=== PATIENT | female | born 1950 | race Caucasian/White ===

== ENCOUNTER 2016-11-29 09:12 | Day surgery (SDC) | payer OTHER ==
[2016-11-29] MEDS ORDERED: HYDROCORTISONE SUCCINATE 100 MG/2 ML VIAL IVP ONE ×2 (09:46→10:00)
[2016-11-29] MEDS ORDERED: LACTATED RINGERS 1,000 ML IV ONE (10:05)
[2016-11-29] MEDS ORDERED: fentaNYL 100 MCG/2 ML VIAL IVP ONE (11:30)
[2016-11-29] MEDS ORDERED: MIDAZOLAM 2 MG/2 ML VIAL IVP ONE (11:30)
--- NOTE | 2016-11-29 12:19 | PROCEDURE REPORT ---
DATE OF PROCEDURE: 11/29/2016 00:00:00 NAME OF PROCEDURE: Colonoscopy. ENDOSCOPIST: Brian White MD PRIMARY CARE: Jackeline Michael PA-C INDICATION: History of colon polyps, and history of microscopic colitis. Need for followup colonoscop y. PREMEDICATIONS: Fentanyl 150 mcg, Versed 7 mg IV titration. TOTAL SEDATION TIME: 24 minutes. DESCRIPTION OF PROCEDURE: After informed consent was obtained, the patient was placed in the left lat eral decubitus position. The video colonoscope was introduced into the rectum, slowly advanced to the cecum. On slow withdrawal, mucosa was carefully examined. The scope was removed. Patient tolerated t he procedure well. BLOOD LOSS: None. COMPLICATIONS: None. FINDINGS: Normal colonoscopy to cecum. The patient will need followup colonoscopy in 5 years. JOB #: [id number] EXT JOB #:[id number]
[2016-11-29 12:48] VITALS: BP 110/66
== END 2016-11-29 09:13 | disposition home or self-care (01) ==
LOC: SDS 09:12
PROVIDERS: ATTEND Internal Medicine Gastroenterology
PROC: 0DJD8ZZ Inspection of Lower Intestinal Tract, Via Natural or Artificial Opening Endoscopic (ICD-10-PCS; principal; 2016-11-29 11:00)
DX: Z86.010 Personal history of colon polyps (principal); G47.30 Sleep apnea, unspecified; Z87.19 Personal history of other diseases of the digestive system; Z86.73 Personal history of transient ischemic attack (TIA), and cerebral infarction without residual deficits; Z79.82 Long term (current) use of aspirin
CPT/HCPCS: 45378; J7120

== ENCOUNTER 2016-12-11 14:12 | Outpatient (CLI) | payer OTHER | END 2016-12-11 14:13 | disposition home or self-care (01) | LOC: RT 14:12 | PROVIDERS: ATTEND Physician Assistant | DX: R00.2 Palpitations (principal); R06.02 Shortness of breath | CPT/HCPCS: 93005 ==

== ENCOUNTER 2016-12-25 14:39 | Outpatient (CLI) | payer OTHER ==
--- NOTE | 2016-12-25 15:46 | XRAY Report ---
TWO VIEW CHEST: 12/25/2016 CLINICAL INDICATION: Chest tightness, shortness of breath. COMPARISON: 09/07/2015 Frontal and lateral views of the chest demonstrate a normal cardiac silhouette. Linear scarring at t he left base is stable. The lungs are hyperinflated, compatible with COPD. No focal consolidation, effusion, or pneumothorax is present. IMPRESSION: COPD, BUT NO EVIDENCE OF ACUTE CARDIOPULMONARY DISEASE. JOB #: [id number] EXT JOB #:[id number]
== END 2016-12-25 14:40 | disposition home or self-care (01) ==
LOC: DI 14:39
PROVIDERS: ATTEND Nurse Practitioner Family
DX: J44.9 Chronic obstructive pulmonary disease, unspecified (principal); R07.89 Other chest pain
CPT/HCPCS: 71020

== ENCOUNTER 2017-02-14 10:11 | Outpatient (CLI) | payer OTHER, MEDICARE ==
--- NOTE | 2017-02-15 15:31 | Mammography Report ---
DIGITAL SCREENING MAMMOGRAM: 02/14/2017 CLINICAL INDICATION: A 66-year-old for screening. COMPARISON: 01/2016, 01/2015, 07/2012, 06/2011, 05/2010 TECHNIQUE: Routine CC and MLO projections were obtained of the breasts. FINDINGS: The breasts again demonstrate scattered fibroglandular densities bilaterally. Asymmetric parenchyma in the right upper outer quadrant is stable. Coarse and punctate, typically benign calcif ications are present. No suspicious masses, clustered microcalcifications, or regions of architectur al distortion are identified. IMPRESSION: BENIGN FINDINGS. RECOMMENDATION: Routine annual screening unless otherwise clinically indicated. BIRADS CATEGORY 2 - BENIGN FINDINGS. STANDARD QUALIFYING STATEMENTS 1. This examination was reviewed with the aid of Computer-Aided Detection (CAD). 2. A negative or benign imaging report should not delay biopsy if clinically suspicious findings are present. Consider surgical consultation if warranted. More than 5% of cancers are not identified by i maging. 3. Dense breasts may obscure an underlying neoplasm. JOB #: [id number] EXT JOB #:[id number]
== END 2017-02-14 10:12 | disposition home or self-care (01) ==
LOC: DI 10:11
PROVIDERS: ATTEND Physician Assistant
DX: Z12.31 Encounter for screening mammogram for malignant neoplasm of breast (principal)
CPT/HCPCS: 77067

== ENCOUNTER 2017-05-25 11:09 | Outpatient (CLI) | payer MEDICARE, OTHER ==
--- NOTE | 2017-05-25 13:30 | XRAY Report ---
DATE OF SERVICE: 05/25/2017 THREE VIEW LEFT FOOT: 05/25/2017 CLINICAL INDICATION: Pain. COMPARISON: MRI 07/28/2010, left great toe 07/22/2010. FINDINGS: AP, lateral, oblique views of the left foot demonstrate interval increase in hallux valgus with mild osteoarthritis. A small plantar calcaneal spur is present. There is no evidence of acute fracture or dislocation. IMPRESSION: INCREASING HALLUX VALGUS, WITH MILD OSTEOARTHRITIS. NO EVIDENCE OF FRACTURE. TD: 05/25/2017 14:29
== END 2017-05-25 11:10 | disposition home or self-care (01) ==
LOC: DI 11:09
PROVIDERS: ATTEND Podiatrist
DX: M19.072 Primary osteoarthritis, left ankle and foot (principal); M20.12 Hallux valgus (acquired), left foot

== ENCOUNTER 2017-10-12 07:57 | Outpatient (CLI) | payer MEDICARE, OTHER | END 2017-10-12 07:58 | disposition home or self-care (01) | LOC: LAB.F 07:57 | PROVIDERS: ATTEND Internal Medicine Gastroenterology | DX: K50.90 Crohn's disease, unspecified, without complications (principal) | CPT/HCPCS: 87493 ==

== ENCOUNTER 2017-10-15 13:06 | Outpatient (CLI) | payer MEDICARE, OTHER ==
[2017-10-16 13:16] LABS: HEPATITIS C ANTIBODY NON-REACTIVE (NON-REACTIVE)
== END 2017-10-15 13:07 | disposition home or self-care (01) ==
LOC: LAB 13:06
PROVIDERS: ATTEND Internal Medicine Gastroenterology
DX: Z53.9 Procedure and treatment not carried out, unspecified reason (principal)
CPT/HCPCS: 36415; 81599; 86317; 86803

== ENCOUNTER 2018-01-07 08:00 | Outpatient (CLI) | payer MEDICARE, OTHER | END 2018-01-07 08:01 | LOC: LAB.R 08:00 | PROVIDERS: ATTEND Internal Medicine Gastroenterology | DX: K50.90 Crohn's disease, unspecified, without complications (principal) | CPT/HCPCS: 83993 ==

== ENCOUNTER 2018-02-12 16:21 | Outpatient (CLI) | payer MEDICARE, OTHER ==
--- NOTE | 2018-02-13 14:58 | XRAY Report ---
Reason: COUGH Procedure Date: 02/12/2018 Accession Number: [id number] / [id number] Procedure: XR - Chest 2 View X-Ray CPT Code: 45745 FULL RESULT: EXAM: CHEST RADIOGRAPHY EXAM DATE: 02/12/2018 04:44 PM. CLINICAL HISTORY: Cough. COMPARISON: CHEST 2 VIEW PA/LAT 12/25/2016 3:23 PM. TECHNIQUE: 2 views. FINDINGS: Lungs/Pleura: Stable mild left base scarring, otherwise no focal opacities evident. No pleural effusion. No pneumothorax. Hyperinflated lungs. Mediastinum: Heart and mediastinal contours are unremarkable. Other: Stable mild lower thoracic compression fractures. IMPRESSION: Stable hyperinflation with left base scarring. No acute pulmonary abnormality. RADIA
== END 2018-02-12 16:22 | disposition home or self-care (01) ==
LOC: DI 16:21
PROVIDERS: ATTEND Nurse Practitioner Family
DX: R05 Cough (principal)
CPT/HCPCS: 71046

== ENCOUNTER 2018-03-15 12:30 | Outpatient (CLI) | payer MEDICARE, OTHER | END 2018-03-15 12:31 | disposition home or self-care (01) | LOC: LAB.R 12:30 | PROVIDERS: ATTEND Internal Medicine Gastroenterology | DX: R19.7 Diarrhea, unspecified (principal); K50.90 Crohn's disease, unspecified, without complications | CPT/HCPCS: 87493 ==

== ENCOUNTER 2018-04-15 08:00 | Outpatient (CLI) | payer MEDICARE, OTHER | END 2018-04-15 23:59 | LOC: LAB.R 08:00 | PROVIDERS: ATTEND Internal Medicine Gastroenterology | DX: R19.7 Diarrhea, unspecified (principal); K50.90 Crohn's disease, unspecified, without complications | CPT/HCPCS: 83993; 87493 ==

== ENCOUNTER 2018-05-07 08:00 | Outpatient (CLI) | payer MEDICARE, OTHER | END 2018-05-07 23:59 | disposition home or self-care (01) | LOC: LAB 08:00 | PROVIDERS: ATTEND Internal Medicine Gastroenterology | DX: R19.7 Diarrhea, unspecified (principal); K50.90 Crohn's disease, unspecified, without complications | CPT/HCPCS: 87493 ==

== ENCOUNTER 2018-06-12 13:10 | Outpatient (CLI) | payer MEDICARE, OTHER | END 2018-06-12 13:11 | disposition home or self-care (01) | LOC: RT 13:10 | PROVIDERS: ATTEND Nurse Practitioner Family | DX: R05 Cough (principal); R93.89 Abnormal findings on diagnostic imaging of other specified body structures | CPT/HCPCS: 94010 ==

== ENCOUNTER 2018-06-25 09:46 | Outpatient (CLI) | payer MEDICARE, OTHER ==
--- NOTE | 2018-06-26 09:34 | Mammography Report ---
Reason: ANNUAL SCREENING Procedure Date: 06/25/2018 Accession Number: [id number] / [id number] Procedure: ANNA - Screening Mammo w/Ivan CPT Code: FULL RESULT: EXAM: Screening Mammo w/Ivan DATE: 06/25/2018 10:15 AM CLINICAL HISTORY: Screening encounter. History of early menses. TECHNIQUE: Bilateral CC and MLO views were obtained. COMPARISON: 02/14/2017 through 07/21/2011. FINDINGS: The breasts demonstrate scattered fibroglandular densities bilaterally. There are coarse typically benign bilateral calcifications. No suspicious masses, clustered microcalcifications, or regions of architectural distortion are identified. IMPRESSION: Benign findings RECOMMENDATION: Routine annual screening unless otherwise clinically indicated. BIRADS CATEGORY 2: Benign findings STANDARD QUALIFYING STATEMENTS: 1. This examination was not reviewed with the aid of Computer-Aided Detection (CAD). 2. A negative or benign imaging report should not delay biopsy if clinically suspicious findings are present. Consider surgical consultation if warrented. More than 5% of cancers are not identified by imaging. 3. Dense breasts may obscure an underlying neoplasm. 4. This examination was reviewed with the aid of 3D breast imaging (tomosynthesis).
== END 2018-06-25 09:47 | disposition home or self-care (01) ==
LOC: DI 09:46
PROVIDERS: ATTEND Obstetrics & Gynecology
DX: Z12.31 Encounter for screening mammogram for malignant neoplasm of breast (principal)
CPT/HCPCS: 77063; 77067

== ENCOUNTER 2018-07-05 07:58 | Outpatient (CLI) | payer MEDICARE, OTHER ==
[2018-07-05 10:20] LABS: ALBUMIN 3.8 g/dL (3.2-5.5); ALBUMIN/GLOBULIN RATIO 1.1 (1.0-2.2); BILIRUBIN,TOTAL 0.7 mg/dL (0.2-1.0); CREATININE 0.5 mg/dL (0.4-1.0); TOTAL PROTEIN 7.2 g/dL (6.7-8.2)
== END 2018-07-05 07:59 | disposition home or self-care (01) ==
LOC: LAB.F 07:58
PROVIDERS: ATTEND Physician Assistant
DX: E78.5 Hyperlipidemia, unspecified (principal)
CPT/HCPCS: 36415; 80053

== ENCOUNTER 2018-07-25 14:54 | Outpatient (CLI) | payer MEDICARE, OTHER ==
--- NOTE | 2018-07-26 10:47 | DEXA Report ---
Reason: ENCOUNTER FOR SCREENING FOR OSTEOPOROSIS Procedure Date: 07/25/2018 Accession Number: [id number] / [id number] Procedure: DEX - Dexa Spine and/or Hip CPT Code: FULL RESULT: EXAM: Dexa Spine and/or Hip DATE: 07/25/2018 5:05 PM CLINICAL HISTORY: ENCOUNTER FOR SCREENING FOR OSTEOPOROSIS TECHNIQUE: Dual energy x-ray absorptiometry (DXA) was performed on a Accolade System. Regions measured are the AP Spine, femoral neck, and if needed forearm. COMPARISON: 02/14/2016. In accordance with the International Society for Clinical Densitometry (ISCD) guidelines, data from previous exams may be reanalyzed using current recommendations and techniques. This is done to allow a more accurate basis for comparison with the current study. FINDINGS: The data for the lumbar spine is as follows: BMD (g/cm/cm) T-SCORE Z-SCORE REGION L1 0.853 -2.3 -1.8 L2 1.068 -1.1 -0.6 L3 1.202 0.0 0.6 L4 1.190 -0.1 0.5 TOTAL 1.082 -0.8 -0.3 NOTE: All evaluable vertebrae are used for classification The data for the hip is as follows: BMD (g/cm/cm) T-SCORE Z-SCORE REGION Neck 0.797 -1.7 -0.9 TOTAL 0.917 -0.7 -0.2 NOTE: The femoral neck or total proximal femur, whichever is lowest, is used for classification. DXA RESULTS SUMMARY: Spine SCAN DATE AGE BMD CHANGE VS CHANGE VS PREVIOUS PREVIOUS % [birth year][age]25[birth year]2018 [age] 1.082 -0.011 -1.0 02/14/2016 65.8 1.093 * Denotes significant change at the 95% confidence level. Denotes dissimilar scan types or analysis methods. DXA RESULTS SUMMARY: Hip SCAN DATE AGE BMD CHANGE VS CHANGE VS PREVIOUS PREVIOUS % [birth year]25[birth year]2018 67.2 0.917 -0.038* -4.0* 02/14/2016 65.8 0.955 * Denotes significant change at the 95% confidence level. Denotes dissimilar scan types or analysis methods. IMPRESSION: THE WHO CLASSIFICATION BASED ON THE INTERNATIONAL REFERENCE STANDARD IS OSTEOPENIA. THE FRACTURE RISK IS INCREASED. RECOMMENDATION: Patients with diagnosis of osteoporosis or osteopenia should have regular bone mineral density assessment. For those eligible for Medicare, routine testing is allowed once every 2 years. Testing frequency can be increased for patients who have rapidly progressing disease or for those who are receiving medical therapy to restore bone mass. COMMENT: World Health Organization (WHO) definitions for osteoporosis and osteopenia: NORMAL BMD: T-score at -1.0 or higher, fracture risk is low OSTEOPENIA BMD: T-score between -1.0 and -2.5, fracture risk is increased. OSTEOPOROSIS BMD: T-score at -2.5 or lower, fracture risk is high. National Osteoporosis Foundation recommends: 1. Obtain adequate dietary calcium (at least 1200 mg per day) and vitamin D (400-800 international units per day). 2. Participate, as appropriate, in regular weightbearing and muscle-strengthening exercise. 3. Avoid tobacco use and reduce alcohol and caffeine intake. 4. For more detailed information see the website at www.NOF.org.
== END 2018-07-25 14:55 | disposition home or self-care (01) ==
LOC: DI 14:54
PROVIDERS: ATTEND Physician Assistant
DX: Z13.820 Encounter for screening for osteoporosis (principal); Z78.0 Asymptomatic menopausal state; M85.89 Other specified disorders of bone density and structure, multiple sites
CPT/HCPCS: 77080

== ENCOUNTER 2019-04-17 09:22 | Outpatient (CLI) | payer MEDICARE, OTHER ==
--- NOTE | 2019-04-17 15:49 | XRAY Report ---
Reason: PAIN IN LEFT HIP Procedure Date: 04/17/2019 Accession Number: [id number] / [id number] Procedure: XRS - Hip w/Pelvis 2-3V LT CPT Code: Final Report FULL RESULT: EXAM: LEFT HIP RADIOGRAPHY EXAM DATE: 04/17/2019 09:46 AM. CLINICAL HISTORY: Pain in left hip. COMPARISON: HIP W/PELVIS 2-3V LT 08/12/2015 4:16 PM. TECHNIQUE: 2 views. FINDINGS: Bones: No acute fracture or bony lesion. Minimal degenerative spurring. Joints: Normal alignment. Mild joint space narrowing of the left hip joint. Degenerative changes of the right hip joint and lower lumbar spine. Soft Tissues: Dystrophic calcification of the left greater trochanter again seen. Pelvic phleboliths. IMPRESSION: 1. No acute osseous abnormalities. 2. Mild degenerative changes of the left hip joint. RADIA
== END 2019-04-17 09:23 | disposition home or self-care (01) ==
LOC: DI.S 09:22
PROVIDERS: ATTEND Nurse Practitioner Family
DX: M16.12 Unilateral primary osteoarthritis, left hip (principal)

== ENCOUNTER 2020-05-21 08:00 | Outpatient (CLI) | payer MEDICARE, OTHER ==
[2020-05-21 14:25] LABS: BASOPHILS # (AUTO) 0.1 10^3/uL (0.0-0.1); BASOPHILS % (AUTO) 0.5 %; EOSINOPHILS # (AUTO) 0.1 10^3/uL (0.0-0.7); EOSINOPHILS % (AUTO) 0.6 %; HGB - HEMOGLOBIN 13.4 g/dL (12.0-16.0); LYMPHOCYTES # (AUTO) 3.7 10^3/uL (1.5-3.5); LYMPHOCYTES % (AUTO) 31.8 %; MEAN CORPUSCULAR HEMOGLOBIN 30.1 pg (27.0-31.0); MEAN CORPUSCULAR HGB CONC 30.7 g/dL (32.0-36.0); MEAN CORPUSCULAR VOLUME 98.2 fL (81.0-99.0); MEAN PLATELET VOLUME 9.1 fL (7.9-10.8); MONOCYTES # (AUTO) 0.6 10^3/uL (0.0-1.0); MONOCYTES % (AUTO) 5.2 %; NEUTROPHILS % (AUTO) 61.2 %; PLT - PLATELET COUNT 242 10^3/uL (130-450); RED BLOOD COUNT 4.45 10^6/uL (4.20-5.40); RED CELL DISTRIBUTION WIDTH 13.2 % (12.0-15.0); WHITE BLOOD COUNT 11.5 x10^3/uL (4.8-10.8)
[2020-05-21 15:16] LABS: ALBUMIN 3.8 g/dL (3.2-5.5); ALBUMIN/GLOBULIN RATIO 1.3 (1.0-2.2); BILIRUBIN,TOTAL 0.7 mg/dL (0.2-1.0); CALCIUM 9.2 mg/dL (8.5-10.3); CREATININE 0.8 mg/dL (0.4-1.0); TOTAL PROTEIN 6.7 g/dL (6.7-8.2)
[2020-05-22 12:58] LABS: HEPATITIS C ANTIBODY NON-REACTIVE (NON-REACTIVE)
== END 2020-05-21 08:01 | disposition home or self-care (01) ==
LOC: LAB.S 08:00
PROVIDERS: ATTEND Internal Medicine Gastroenterology
DX: K50.90 Crohn's disease, unspecified, without complications (principal)
CPT/HCPCS: 36415; 80053; 81599; 85025; 86480; 86803; 87350

== ENCOUNTER 2020-09-01 09:20 | Outpatient (CLI) | payer MEDICARE, OTHER ==
--- NOTE | 2020-09-08 09:13 | DEXA Report ---
PROCEDURE: Dexa Spine and/or Hip INDICATIONS: POST MENOPAUSAL TECHNIQUE: Dual energy x-ray absorptiometry (DXA) was performed on a Dragonfly System. Regions measur ed are the AP Spine, femoral neck, and if needed forearm. COMPARISON: None. FINDINGS: Lumbar Spine: Bone Mineral Density 1.1 to g/cm/cm,T score -0.4, compared to -0.8 Left Hip: Bone Mineral Density 0.901 g/cm/cm,T score -0.8, compared to -0.7 Left Femoral Neck: Bone Mineral Density 0.835 g/cm/cm, T score -1.5, compared to -1.7 (T score greater or equal to -1.0: NORMAL) (T score from -1.1 to -2.4: OSTEOPENIA) (T score less than or equal to -2.5 to: OSTEOPOROSIS) Impression: Persistent appearance of mild to moderate osteopenia within the left femoral neck, slight ly less severe. Normal bone mineral density within the lumbar spine and left hip slightly improved in the lumbar spine are relatively stable in the hip as above. Patients with diagnosis of osteoporosis or osteopenia should have regular bone mineral density assess ment. For those eligible for Medicare, routine testing is allowed once every 2 years. Testing frequ ency can be increased for patients who have rapidly progressing disease or for those who are receivin g medical therapy to restore bone mass. Reviewed by: Jen Tellez MD on 09/01/2020 4:30 PM PDT Approved by: Jen Tellez MD on 09/01/2020 4:30 PM PDT Station ID: [id number]
== END 2020-09-01 09:21 | disposition home or self-care (01) ==
LOC: DI 09:20
PROVIDERS: ATTEND Nurse Practitioner Family
DX: M85.88 Other specified disorders of bone density and structure, other site (principal)

== ENCOUNTER 2020-09-01 09:23 | Outpatient (CLI) | payer MEDICARE, OTHER ==
--- NOTE | 2020-09-02 12:20 | Mammography Report ---
BILATERAL DIGITAL SCREENING MAMMOGRAM 3D/2D: 09/01/2020 CLINICAL: Routine screening. Comparison is made to exams dated: 06/25/2018 mammogram, 02/14/2017 mammogram, and 02/14/2016 mammogr am - [facility]. There are scattered fibroglandular elements in both breasts. No significant masses, calcifications, or other findings are seen in either breast. There has been no significant interval change. IMPRESSION: NEGATIVE There is no mammographic evidence of malignancy. A 1 year screening mammogram is recommended. This exam was interpreted at Station ID: [id number]. NOTE: For mammograms, a report in lay terms will be sent to the patient. Approximately 15% of breast malignancies will not be visualized mammographically. In the management of a palpable breast mass, a negative mammogram must not discourage biopsy of a clinically suspicious lesion. Electronically Signed By: Joe Campbell M.D. ar/penrad:09/01/2020 10:45:54 ACR BI-RADS Category 1: Negative 3341F PARENCHYMAL PATTERN: (A) - The breast(s) demonstrate(s) scattered fibroglandular densities. BI-RADS CATEGORY: (1) - 1 RECOMMENDATION: (ANNUAL) - Recommend routine annual screening mammography. [id number] 1 year screening LATERALITY: (B)
== END 2020-09-01 09:24 | disposition home or self-care (01) ==
LOC: DI 09:23
PROVIDERS: ATTEND Nurse Practitioner Family
DX: Z12.31 Encounter for screening mammogram for malignant neoplasm of breast (principal)

== ENCOUNTER 2020-11-11 08:00 | Outpatient (CLI) | payer MEDICARE, OTHER | END 2020-11-11 23:59 | disposition home or self-care (01) | LOC: LAB.R 08:00 | PROVIDERS: ATTEND Internal Medicine Gastroenterology | DX: K50.90 Crohn's disease, unspecified, without complications (principal); R19.7 Diarrhea, unspecified | CPT/HCPCS: 83993 ==

== ENCOUNTER 2020-11-15 15:51 | Outpatient (CLI) | payer MEDICARE, OTHER ==
[2020-11-15 16:05] LABS: BASOPHILS % (AUTO) 0.2 %; HCT - HEMATOCRIT 42.8 % (37.0-47.0); HGB - HEMOGLOBIN 13.5 g/dL (12.0-16.0); LYMPHOCYTES % (AUTO) 11.3 %; MEAN CORPUSCULAR HEMOGLOBIN 29.5 pg (27.0-31.0); MEAN CORPUSCULAR HGB CONC 31.5 g/dL (32.0-36.0); MEAN CORPUSCULAR VOLUME 93.7 fL (81.0-99.0); MEAN PLATELET VOLUME 8.4 fL (7.9-10.8); MONOCYTES # (AUTO) 0.3 10^3/uL (0.0-1.0); MONOCYTES % (AUTO) 2.8 %; NEUTROPHILS # (AUTO) 7.8 10^3/uL (1.5-6.6); NEUTROPHILS % (AUTO) 84.8 %; PLT - PLATELET COUNT 280 10^3/uL (130-450); RED BLOOD COUNT 4.57 10^6/uL (4.20-5.40); RED CELL DISTRIBUTION WIDTH 14.2 % (12.0-15.0); WHITE BLOOD COUNT 9.2 x10^3/uL (4.8-10.8)
[2020-11-15] MEDS ORDERED: IOVERSOL 320 100 ML VIAL IVP ONE ×2 (16:11→20:58)
[2020-11-15] MEDS ORDERED: IOVERSOL 320 50 ML VIAL ONE (16:11)
[2020-11-15 16:16] LABS: ALBUMIN 3.7 g/dL (3.2-5.5); ALBUMIN/GLOBULIN RATIO 1.1 (1.0-2.2); BILIRUBIN,TOTAL 0.8 mg/dL (0.2-1.0); CALCIUM 8.8 mg/dL (8.5-10.3); CREATININE 0.8 mg/dL (0.4-1.0); POTASSIUM 4.2 mmol/L (3.5-5.0); TOTAL PROTEIN 7.2 g/dL (6.7-8.2)
[2020-11-15 16:46] LABS: THYROID STIMULATING HORMONE 0.35 uIU/mL (0.34-5.60)
--- NOTE | 2020-11-15 17:47 | CT Report ---
PROCEDURE: Abdomen/Pelvis W INDICATIONS: LEFT LOWER QUAD PAIN CONTRAST: IV CONTRAST: Optiray 320 ml: 100 PO CONTRAST: Optiray 320 ml50 TECHNIQUE: After the administration of intravenous contrast, 5 mm thick sections acquired from the diaphragms to the symphysis. 5 mm thick coronal and sagittal reformats were acquired. For radiation dose reducti on, the following was used: automated exposure control, adjustment of mA and/or kV according to rosana ent size. COMPARISON: CT abdomen/pelvis 02/11/2014 FINDINGS: Image quality: Excellent. ABDOMEN: Lung bases: There is linear atelectasis or scarring in the lingula and right middle lobe and dependen t atelectasis posteriorly. Heart size is normal. Solid organs: No focal liver lesion is seen. Status post cholecystectomy. There is prominence of the central intrahepatic bile ducts and enlargement of the common bile duct to approximately 15 mm, whic h is most likely related to prior cholecystectomy. The spleen is normal in size. Pancreas enhances no rmally. No adrenal nodules. Kidneys demonstrate normal size and enhancement, without hydronephrosis . Peritoneum and bowel: There is bowel wall thickening and underdistention of the rectum, sigmoid, desc ending, and distalmost transverse colon that is suspicious for colitis. No pericolonic fat stranding is seen. No ascites or pneumoperitoneum. No signs of bowel obstruction. Small hiatal hernia. Nodes and vessels: No retroperitoneal or mesenteric adenopathy by size criteria. Aorta and inferior vena cava are normal in size. Mild aortic and vascular calcifications. Miscellaneous: Spinal fat-containing periumbilical hernia. PELVIS: Genitourinary: Bladder wall thickness is normal. The uterus is normal in size. No adnexal mass is s een. Miscellaneous: No inguinal hernias or adenopathy. Bones: No suspicious bony lesions. No vertebral body compression fractures. Degenerative changes a re seen in the included spine. There is grade 1 anterolisthesis of L4 on L5 and generalized osteopeni a. IMPRESSION: 1. Long segment of bowel wall thickening involving the descending and sigmoid colon and the rectum is suspicious for a nonspecific proctocolitis. 2. Status post cholecystectomy. Prominence of the common bile duct and central intrahepatic bile duct s is most likely related to the cholecystectomy rather than distal obstruction, but correlation with clinical and laboratory findings is recommended. Reviewed by: Joe Campbell MD on 11/15/2020 4:45 PM AKDT Approved by: Joe Campbell MD on 11/15/2020 4:45 PM AKDT Station ID: [id number]
[2020-11-15] MEDS ORDERED: IOVERSOL 320 50 ML VIAL PO ONE (21:00)
== END 2020-11-15 15:52 | disposition home or self-care (01) ==
LOC: DI 15:51
PROVIDERS: ATTEND Nurse Practitioner Family
DX: R10.32 Left lower quadrant pain (principal); R10.12 Left upper quadrant pain; R19.7 Diarrhea, unspecified
CPT/HCPCS: 36415; 74177; 80053; 84443; 85025; Q9967

== ENCOUNTER 2020-11-16 12:29 | Outpatient (CLI) | payer MEDICARE, OTHER ==
[2020-11-16 15:10] LABS: BASOPHILS % (AUTO) 0.5 %; EOSINOPHILS % (AUTO) 0.2 %; HCT - HEMATOCRIT 41.9 % (37.0-47.0); HGB - HEMOGLOBIN 12.8 g/dL (12.0-16.0); LYMPHOCYTES % (AUTO) 11.8 %; MEAN CORPUSCULAR HEMOGLOBIN 28.5 pg (27.0-31.0); MEAN CORPUSCULAR HGB CONC 30.5 g/dL (32.0-36.0); MEAN CORPUSCULAR VOLUME 93.3 fL (81.0-99.0); MEAN PLATELET VOLUME 8.9 fL (7.9-10.8); MONOCYTES # (AUTO) 0.2 10^3/uL (0.0-1.0); MONOCYTES % (AUTO) 2.3 %; NEUTROPHILS % (AUTO) 84.6 %; PLT - PLATELET COUNT 256 10^3/uL (130-450); RED BLOOD COUNT 4.49 10^6/uL (4.20-5.40); RED CELL DISTRIBUTION WIDTH 14.3 % (12.0-15.0); WHITE BLOOD COUNT 8.3 x10^3/uL (4.8-10.8)
[2020-11-16 16:10] LABS: CREATININE 0.7 mg/dL (0.4-1.0); CRP - C-REACTIVE PROTEIN 2.3 mg/dL (0-1.0)
== END 2020-11-16 12:30 | disposition home or self-care (01) ==
LOC: LAB.S 12:29
PROVIDERS: ATTEND Ophthalmology
DX: H53.40 Unspecified visual field defects (principal)
CPT/HCPCS: 36415; 82565; 85025; 85651; 86140

== ENCOUNTER 2020-12-10 07:39 | Outpatient (CLI) | payer MEDICARE, OTHER ==
[2020-12-10 14:37] LABS: CALCIUM 9.2 mg/dL (8.5-10.3); CREATININE 0.7 mg/dL (0.4-1.0); POTASSIUM 3.8 mmol/L (3.5-5.0)
[2020-12-10 14:56] LABS: THYROID STIMULATING HORMONE 0.95 uIU/mL (0.34-5.60)
[2020-12-10 14:58] LABS: FREE T3 3.38 pg/mL (2.5-3.9); FREE T4 (FREE THYROXINE) 1.01 ng/dL (0.58-1.64)
== END 2020-12-10 07:40 | disposition home or self-care (01) ==
LOC: LAB.S 07:39
PROVIDERS: ATTEND Ophthalmology
DX: E87.1 Hypo-osmolality and hyponatremia (principal); H53.40 Unspecified visual field defects; R19.7 Diarrhea, unspecified; K50.90 Crohn's disease, unspecified, without complications; R94.6 Abnormal results of thyroid function studies
CPT/HCPCS: 36415; 80048; 84439; 84443; 84481; 86376

== ENCOUNTER 2021-05-07 08:00 | Outpatient (CLI) | payer MEDICARE, OTHER | END 2021-05-07 23:59 | LOC: LAB.R 08:00 | DX: K92.1 Melena (principal); R19.7 Diarrhea, unspecified; K50.90 Crohn's disease, unspecified, without complications | CPT/HCPCS: 83993 ==

== ENCOUNTER 2021-07-01 10:30 | Outpatient (CLI) | payer MEDICARE, OTHER ==
--- NOTE | 2021-07-01 16:22 | XRAY Report ---
PROCEDURE: Knee 3 View BILAT INDICATIONS: BILATERAL KNEE PAIN TECHNIQUE: 3 views of the bilateral knee(s) were acquired. COMPARISON: None. FINDINGS: Bones: No fractures or dislocations. No suspicious bony lesions. Mild to moderate bilateral tricom partmental osteoarthritis is seen more prominent in lateral femoral tibial compartments. No patella s ubluxation is seen. Soft tissues: Small bilateral suprapatellar joint effusion is noted.. No suspicious soft tissue calc ifications. IMPRESSION: Mild to moderate bilateral tricompartmental osteoarthritis more prominent in lateral fem oral tibial compartments. Small bilateral suprapatellar joint effusion. No fracture or dislocation. Reviewed by: Herminio Baker MD on 07/01/2021 4:21 PM PST Approved by: Herminio Baker MD on 07/01/2021 4:21 PM PST Station ID: [id number]
== END 2021-07-01 10:31 | disposition home or self-care (01) ==
LOC: DI.S 10:30
PROVIDERS: ATTEND Nurse Practitioner Family
DX: M17.0 Bilateral primary osteoarthritis of knee (principal); M25.462 Effusion, left knee; M25.461 Effusion, right knee

== ENCOUNTER 2021-07-03 06:10 | Outpatient (CLI) | payer MEDICARE, OTHER | END 2021-07-03 23:59 | disposition home or self-care (01) | LOC: LAB.R 06:10 | PROVIDERS: ATTEND Internal Medicine Gastroenterology | DX: K50.90 Crohn's disease, unspecified, without complications (principal) | CPT/HCPCS: 83993 ==

== ENCOUNTER 2021-07-27 08:41 | Outpatient (CLI) | payer MEDICARE, OTHER ==
--- NOTE | 2021-07-27 13:16 | XRAY Report ---
PROCEDURE: Chest 2 View X-Ray INDICATIONS: X RAY TECHNIQUE: 2 view(s) of the chest. COMPARISON: None. FINDINGS: Surgical changes and devices: None. Lungs and pleura: No pleural effusions or pneumothorax. Lungs are clear. Mediastinum: Mediastinal contours are normal. Heart size is normal. Bones and chest wall: No suspicious bony abnormalities. Rightward curvature of the thoracic spine. Soft tissues appear unremarkable. IMPRESSION: No acute cardiopulmonary abnormality Reviewed by: Ayad James on 07/27/2021 1:15 PM PDT Approved by: Ayad James on 07/27/2021 1:15 PM PDT Station ID: [id number]
== END 2021-07-27 08:42 | disposition home or self-care (01) ==
LOC: DI.S 08:41
PROVIDERS: ATTEND Nurse Practitioner Family
DX: R05.9 Cough, unspecified (principal); E22.1 Hyperprolactinemia
CPT/HCPCS: 36415; 84146